=== PATIENT | male | born 1975 | race Caucasian/White ===

== ENCOUNTER 2016-10-28 15:25 | Emergency (ER) | payer OTHER ==
[~2016-10-28] VITALS: Ht 182.9 cm; Wt 81.6 kg
[2016-10-28 16:40] VITALS: BP 144/86
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
[2016-10-28] MEDS ORDERED: TRAM-29 PO (17:52)
[2016-10-28] MEDS ORDERED: METH-37 PO (17:52)
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
== END 2016-10-28 17:59 | disposition home or self-care (01) ==
LOC: ER 15:25
DX: S16.1XXA Strain of muscle, fascia and tendon at neck level, initial encounter (principal); S46.912A Strain of unspecified muscle, fascia and tendon at shoulder and upper arm level, left arm, initial encounter; R51 Headache; F17.200 Nicotine dependence, unspecified, uncomplicated; V49.49XA Driver injured in collision with other motor vehicles in traffic accident, initial encounter; Y93.89 Activity, other specified; Y99.8 Other external cause status; Y92.488 Other paved roadways as the place of occurrence of the external cause
CPT/HCPCS: 70450; 72125; 73030; 99284